=== PATIENT | female | born 1970 | race Caucasian/White ===

== ENCOUNTER 2023-09-23 12:57 | Outpatient (AMB) | payer OTHER, SELFPAY ==
[2023-09-23 13:22] VITALS: BP 132/78; BMI 30.3
--- NOTE | 2023-09-23 13:22 | MHC.OFFVIS ---
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: No Information Interpreted: clinical only Director Of Operations Support: Director Of Operations Support Present Allergies No Known Allergies Allergy (Verified 09/23/23 13:22) Medication List - Last Reviewed 09/23/23 by Romero Jean Baptiste CMA cholecalciferol (vitamin D3) 10 mcg PO DAILY Post menopausal: Yes (2018) [facility] Medical History (Updated 09/23/23 @ 16:15 by Sarahi Morgan CNM) Vitamin A deficiency Family History (Updated 09/23/23 @ 13:28 by Romero Jean Baptiste CMA) Sister Ovarian cancer Female Reproductive History Menstrual Age of Menarche: 11 Duration of menses: 6-7 days control method: none Total pregnancies: 3 Full term: 3 History of abnormal pap smear: No (2015 neg pap) Date of Mammogram: 12/07/22 (neg) Physical Exam Vital Signs: Last Vital Signs BP 132/78 09/23/23 13:22 BMI result Body Mass Index 30.3 Const General: healthy appearing, comfortable, no acute distress, well developed and alert Nutritional Appearance: average body habitus Orientation/consciousness: patient oriented x3 Limitations: no limitations HEENT Head: Yes normocephalic Neck Neck: Yes normal visual inspection Chest Chest palpation & inspection: normal inspection of the chest Breast/axilla inspection: normal inspection of the breasts and normal inspection of the axillae Breast/axilla palpation: normal palpation of the breasts and normal palpation of the axillae Resp Effort & Inspection: normal respiratory effort GI Inspection: Yes normal to inspection, No Abdominal wall edema and No distended Palpation (GI): Soft to palpation and nontender General: Yes bladder normal to palpation External Female Exam: normal external appearance and normal appearance of the urethra Speculum Exam - Vagina: normal appearance of the vagina, normal palpation and normal vaginal discharge Speculum Exam - Cervix: normal appearance of the cervix, normal palpation and nontender Bimanual exam- vagina & uterus: normal bimanual exam, normal palpation, uterine size normal, bladder normal to palpation, consistency normal, normal palpation, uterine mobility normal, uterine shape normal, No Cervical tenderness present, non-tender and no cervical motion tenderness Bimanual Exam- Adnexa, other: normal adnexae, no masses, normal and No adnexal tenderness Neuro General: patient oriented x3 Assessment & Plan Assessment & Plan (1) Family hx-malignancy: Comment: Diagnosis is unclear whether site is originally ovarian or uterine, she is in active treatment now. Code(s): Z80.9 - Family history of malignant neoplasm, unspecified Category: Medical (2) Cervical cancer screening: Code(s): Z12.4 - Encounter for screening for malignant neoplasm of cervix Category: Medical (3) Women's annual routine gynecological examination: Code(s): Z01.419 - Encounter for gynecological examination (general) (routine) without abnormal findings Category: Medical (4) Burning sensation of skin: Comment: Started suddenly this spring neck and upper chest and also on palms of hands, seeking evaluation actively with no success so far, awaiting further neurological consultation... Code(s): R20.8 - Other disturbances of skin sensation Category: Medical (5) Complicated grief: Comment: Grieving the loss of her grandmother who had a difficult over 12 days spring. Code(s): F43.21 - Adjustment disorder with depressed mood Category: Medical Plan -----Discussed in this visit the following: healthy balanced diet, regular and consistent exercise, getting recommended health screens, doing the best she can for her particular health concerns, kegel exercises, pap smear screening and followup recommendations, mammography screening and SBE, normal changes in cycles in her life stage--- .------discussed the many challenges of her sensations and seeking answers for what could be the source of her problem. She is menopausal having not had a period for many years she was 48 or 49. She is not sexually active and has not been for well over 19 years. She has no concerns at all about STDs her concerns are all about trying to see answers for what is causing her sensations of burning on her skin both in her neck and upper chest and palms of her hands that started this spring she has had a full load of tests done by her primary care provider in [facility] and is awaiting a new primary care provider in [place]. She is also awaiting a 2nd more complete neurological consultation in the fall. She was offered medication but is not interested in taking medication to mask symptoms without having a diagnosis. She has been screened for lupus and tick-borne diseases and it was felt that she did not meet criteria for MS either. It was suggested to her that all of her symptoms are related to menopause. She is not having any sleep disturbances whatsoever it isn't so much hot flashes as burning on her skin that she experiences without any flushing or skin coloration either. -------her sister was diagnosed within the last year so with some sort of cancer in the pelvic region but it was not made very clear whether it was ovarian or uterine in origin but she is undergoing treatment and she three-month scans for evaluation to follow it. Her sister does not speak of it much and so she was not able to figure out find out if her sister had the BRCA testing. -------earlier in the year her grandmother and she was witnessed to her dying in the last 12 days of her life and feels that it was not handled well and she watched her grandmother suffer. She knows she is grieving that as well. she made an active choice to raise her 3 daughters and not have any other relationships in her life after her left her.. I could not think of any test to order that would reliably connect any of her symptoms to menopause at this stage an FSH would not be very useful as it is known by her history that she is well into menopause now I could not think of the rationale to order any other test ---------I offered a pelvic ultrasound to at least screen her ovaries for any obvious pathology that might otherwise go undisclosed since she is not able to being further access to her sister's history at this time. We will have a tele visit afterwards to discuss this. Orders: Orders CT NG by PCR Today N89.8 - Other specified noninflammatory disorders of vagina US pelvic and transvaginal Today Z80.9 - Family history of malignant neoplasm, unspecified PAP + HPV E6/E7 rfx 18/45 Today Z01.419 - Encounter for gynecological examination (general) (routine) without abnormal findings Bacterial Vaginosis Panel Today N89.8 - Other specified noninflammatory disorders of vagina Coding Level of Care Code New Pt Prev Care 40-64y(30120) Diagnoses Family hx-malignancy Z80.9 Cervical cancer screening Z12.4 Women's annual routine gynecological examination Z01.419 Burning sensation of skin R20.8 Complicated grief F43.21
== END 2023-09-23 14:27 | disposition home or self-care (01) ==
LOC: HO.HWSM 12:57
PROVIDERS: PCP Internal Medicine; Visit Provider Advanced Practice Midwife
DX: Z01.419 Encounter for gynecological examination (general) (routine) without abnormal findings (principal); R20.8 Other disturbances of skin sensation; F43.21 Adjustment disorder with depressed mood; Z80.9 Family history of malignant neoplasm, unspecified
CPT/HCPCS: 99386

== ENCOUNTER 2023-09-23 12:57 | Outpatient (REF) | payer OTHER, SELFPAY ==
[2023-09-24 11:31] LABS: Bacterial Vaginosis PCR NEGATIVE (Negative); Candida Group PCR NOT DETECTED (Not Detect); Candida glab krusei PCR NOT DETECTED (Not Detect); Trichomonas vaginalis PCR NOT DETECTED (Not Detect)
[2023-09-24 11:57] LABS: CT PCR NOT DETECTED (Not Detect.); NG PCR NOT DETECTED (Not Detect.)
[2023-09-27 20:13] LABS: HPV mRNA E6/E7 Not Detected (Not Detected)
== END 2023-09-23 12:58 | disposition home or self-care (01) ==
LOC: HO.LAB 12:57
PROVIDERS: PCP Internal Medicine; Visit Provider Advanced Practice Midwife
DX: N89.8 Other specified noninflammatory disorders of vagina (principal); Z01.419 Encounter for gynecological examination (general) (routine) without abnormal findings
CPT/HCPCS: 0352U; 36415; 87491; 87591; 87624; 88175

== ENCOUNTER 2023-10-11 23:26 | Emergency (ER) | payer OTHER, SELFPAY ==
--- NOTE | ~2023-10-11 | XR_ITS ---
EXAMINATION: XR CHEST CLINICAL INFORMATION: Cough, Covid COMPARISON: None available. TECHNIQUE: Frontal view of the chest was obtained. FINDINGS: The lungs are clear with no focal consolidation. No evidence of pneumothorax, pulmonary edema, or pleural effusions. The cardiomediastinal silhouette is unremarkable. No acute osseous findings. XR/XR chest 1V IMPRESSION: No acute cardiopulmonary findings. Electronically signed by: Jaxon Spivey MD 10/12/2023 04:25 AM EDT
--- NOTE | 2023-10-11 23:44 | ECG_ITS ---
Test Reason : SYNCOPE Blood Pressure : / mmHG Vent. Rate : 099 BPM Atrial Rate : 099 BPM P-R Int : 146 ms QRS Dur : 070 ms QT Int : 346 ms P-R-T Axes : 045 018 030 degrees QTc Int : 444 ms Sinus rhythm with occasional Premature ventricular complexes Otherwise normal ECG No previous ECGs available Referred By: Marcelo Saldana Electronically Signed By:SHIRLEY SALAS
--- NOTE | 2023-10-11 23:44 | ED_ITS ---
HPI - Syncope General Chief Complaint: Syncope Stated Complaint: passed out and diaphoretic Time Seen by Provider: 10/11/23 23:44 Source: patient Mode of arrival: ambulatory Limitations: no limitations History of Present Illness ED Provider: brinda LOYOLA narrative: Patient's history of depression on duloxetine since 09/28 which causing her nausea did not eat much today was standing and talking to her daughter on phone felt lightheaded with hot feeling and blurred vision , patient passed out next thing she found her was sitting on the ground no tongue bite no seizure activity no confusion afterwards patient never had similar episode in the past no palpitation no chest pain no cardiac history patient also complaining of cough for last few days and feeling weak Related Data Home Medications ?Medication ?Instructions ?Recorded ?Confirmed cholecalciferol (vitamin D3) 10 10 mcg PO DAILY 09/23/23 mcg (400 unit) capsule Previous Rx's ?Medication ?Instructions ?Recorded benzonatate 200 mg capsule 200 mg PO TID PRN cough #20 caps 10/12/23 Allergies Allergy/AdvReac Type Severity Reaction Status Date / Time No Known Allergies Allergy Verified 10/11/23 23:49 Review of Systems 2 Review of Systems: Yes all other systems are reviewed and are negative PMF Past Medical History Medical History Vitamin A deficiency Family History Family History Sister Ovarian cancer Social History Social History Smoked in Last 30 Days: No Use of substances other than those prescribed or required for medical reasons: No Advance Directives: No Advance Directives Information Provided: Yes Do you have a plan to hurt others: No Plan Patient : No Physical Exam 2 Vital Signs: Vital Signs: Last Vital Signs Temp 98.9 F 10/12/23 02:41 Pulse 100 10/12/23 02:41 Resp 17 10/12/23 02:41 BP 103/66 10/12/23 02:41 Pulse Ox 96 10/12/23 02:41 O2 Del Method Room Air 10/12/23 02:41 BMI result Body Mass Index 30.1 Appearance: Alert. Oriented X3. No acute distress. Eyes: No pallor or icterus ENT: Pharynx normal. Oral Mucosa moist Neck: Normal inspection. Neck supple. CVS: Normal heart rate and rhythm. Pulses normal. Respiratory: No respiratory distress. Equal air entry bilateral, no wheezing/rales/rhonchi Abdomen: Soft and nontender. Bowel sounds are present, no mass palpable, no CVA tenderness Skin: Skin warm and dry. Normal skin color. Normal skin turgor. Extremities: No lower extremity edema. No calf tenderness Neuro: Oriented X 3. No motor deficit. No sensory deficit.No cerebellar signs , cranial nerves II-XII intact Medications Administered Discontinued Medications Generic Name Dose Route Start Last Admin Trade Name Freq PRN Reason Stop Dose Admin Sodium Chloride 1,000 mls @ 999 mls/hr 10/11/23 23:44 10/12/23 01:24 Ns IV 10/12/23 00:44 Infused .Q1H1M ONE Infusion Sodium Chloride 1,000 mls @ 999 mls/hr 10/12/23 01:10 10/12/23 01:14 Ns IV 10/12/23 02:10 999 mls/hr .Q1H1M ONE Administration Medical Decision Making Medical Decision Making [facility] Narrative: Patient clinically with vasovagal attack will give her IV fluids check labs COVID test positive patient improved after 2 L of IV fluids Lab Data [facility] Lab Attestation statement: I reviewed the patient's lab results. 10/12/23 00:06 10/12/23 00:06 Labs: Lab Results 10/12/23 Range/Units 00:06 WBC 6.1 (4.8-10.8) X10*3/uL RBC 4.54 (4.20-5.50) X10*6/uL Hgb 13.0 (12.0-16.0) g/dl Hct 39.2 (37.0-47.0) % MCV 86.3 (80.0-98.0) fL MCH 28.6 (27.0-33.0) pg MCHC 33.2 (31.0-35.0) g/dl RDW 12.5 (11.0-16.0) % Plt Count 183 (160-400) X10*3/uL MPV 9.7 (9.4-12.3) fL Immature Gran % (Auto) 0.5 H (0.0-0.4) % Neut % (Auto) 79.9 H (45-73) % Lymph % (Auto) 8.0 L (20-40) % Centre % (Auto) 11.0 (2-11) % Eos % (Auto) 0.3 (0-4) % Baso % (Auto) 0.3 (0-2) % Lymph # (Auto) 0.5 L (1.2-4.9) X10*3/uL Centre # (Auto) 0.7 (0.1-1.2) X10*3/uL Eos # (Auto) 0.0 (0.0-0.4) X10*3/uL Baso # (Auto) 0.0 (0.0-0.2) X10*3/uL Abs Immat Gran (auto) 0.03 (0.00-0.03) X10*3/uL Absolute Neuts (auto) 4.9 (2.0-8.3) x10*3/uL Absolute Nucleated RBC 0.000 (0.0-0.012) X10*3/uL Nucleated RBC % (auto) 0.0 (0.0-0.2) /100WBC Sodium 139 (135-145) mmol/L Potassium 3.7 (3.3-5.1) mmol/L Chloride 103 (96-108) mmol/L Carbon Dioxide 23 (22-29) mmol/L Anion Gap 17 (12-20) BUN 10 (9-16) mg/dL Creatinine 0.83 (0.5-1.4) mg/dL Estim Creat Clear Calc 77.0 Estimated GFR > 60 Random Glucose 126 H (60-115) mg/dL Calcium 8.9 (8.4-10.2) mg/dL Total Bilirubin 0.3 (0.0-1.0) mg/dL AST 37 H (5-31) U/L ALT 32 H (0-31) U/L Alkaline Phosphatase 54 (39-117) U/L Troponin I High Sens < 2.7 (<3.5-17.0) ng/L Total Protein 6.8 (6.5-8.0) g/dL Albumin 3.9 (3.5-5.0) g/dL COVID-19 ([facility]ARD[facility]) Positive A (Negative) COVID-19 Clin Com See Note Independent Interpretation I performed an independent interpretation of an: EKG Interpretation: Normal sinus rhythm heart rate 99 beats per minute occasional PVCs unifocal no acute STT wave changes no acute ischemia Discharge Plan Discharge Clinical Impression: Vasovagal syncope, COVID-19 Patient Disposition: Home, Self-Care Instructions: Syncope (ED), COVID-19 (Coronavirus Disease 2019) (ED) Additional Instructions: Drink plenty of fluids Social distancing as advised Cough drops as prescribed Report to the ER/PCP if increased shortness of breath Prescriptions: New benzonatate 200 mg capsule 200 mg PO TID PRN (Reason: cough) Qty: 20 0RF No Action cholecalciferol (vitamin D3) 10 mcg (400 unit) capsule 10 mcg PO DAILY Interventions: ED Discharge Assessment Last Done: 10/12/23 02:41 Discharge Date/Time: 10/12/23 02:42 Print Language: [place] Leonean
[2023-10-11 23:47] VITALS: BP 115/62; BP 125/75; PULSE 62; PULSE 94; RESP 19; TEMP 37.2; O2SAT 95; O2SAT 96; BMI 30.1
[2023-10-11] MEDS: 0.9 % Sodium Chloride 1,000 ML 999 ML IV (23:51)
--- NOTE | 2023-10-12 00:09 | PC.NURSE ---
pt biba from home a&ox4, respirations even and unlabored. pt reporting talking to daughter on phone when she experienced a syncopal episode. pt reports she had a feeling that she might pass out. pt denies head strike and blood thinners. pt reports starting a new medication and reports it has been making her feel unwell. pt reports she has had poor PO intake all day. ems placed 18G left ac, 4mg zofran given. pt normal sinus on tele 89-90bpm. labs obtained and sent.
[2023-10-12 00:11] VITALS: O2SAT 98
[2023-10-12 00:11] LABS: MANUAL DIFF FLAG NO
[2023-10-12 00:15] LABS: Basophils Percent Auto 0.3 % (0-2); Eosinophils Percent Auto 0.3 % (0-4); Hematocrit 39.2 % (37.0-47.0); Imm Gran Abs Auto 0.03 X10*3/uL (0.00-0.03); Imm Gran Pct Auto 0.5 % (0.0-0.4); Lymphocytes Absolute Auto 0.5 X10*3/uL (1.2-4.9); Mean Corpuscular HGB Conc 33.2 g/dl (31.0-35.0); Mean Corpuscular Hemoglobin 28.6 pg (27.0-33.0); Mean Corpuscular Volume 86.3 fL (80.0-98.0); Mean Platelet Volume 9.7 fL (9.4-12.3); Monocytes Absolute Auto 0.7 X10*3/uL (0.1-1.2); Neutrophils Absolute Auto 4.9 x10*3/uL (2.0-8.3); Neutrophils Percent Auto 79.9 % (45-73); Platelet Count 183 X10*3/uL (160-400); Red Blood Count 4.54 X10*6/uL (4.20-5.50); Red Cell Distribution Width 12.5 % (11.0-16.0); White Blood Count 6.1 X10*3/uL (4.8-10.8)
[2023-10-12 00:26] LABS: Alanine Aminotransferase 32 U/L (0-31); Albumin Level 3.9 g/dL (3.5-5.0); Alkaline Phosphatase 54 U/L (39-117); Anion Gap 17 (12-20); Aspartate Amino Transferase 37 U/L (5-31); Bilirubin Total 0.3 mg/dL (0.0-1.0); Blood Urea Nitrogen 10 mg/dL (9-16); Calcium 8.9 mg/dL (8.4-10.2); Carbon Dioxide 23 mmol/L (22-29); Chloride 103 mmol/L (96-108); Estimated Glomerular Filt Rate > 60; Glucose Random 126 mg/dL (60-115); Potassium 3.7 mmol/L (3.3-5.1); Sodium 139 mmol/L (135-145); Total Protein 6.8 g/dL (6.5-8.0)
[2023-10-12 00:33] LABS: Troponin-I High Sensitivity < 2.7 ng/L (<3.5-17.0)
[2023-10-12 00:50] LABS: COVID-19 Test Positive (Negative); IDNOW Serial# 08D9AD1C
[2023-10-12 01:08] VITALS: BP 114/69; BP 122/75; PULSE 95; PULSE 97
[2023-10-12 01:09] VITALS: BP 99/63; PULSE 116
--- NOTE | 2023-10-12 01:09 | PC.NURSE ---
pt orthostatic vitals obtained at this time, pt denied dizziness and shortness of breath when standing. aware, second IV bolus administered at this time.
[2023-10-12] MEDS: 0.9 % Sodium Chloride 1,000 ML 999 ML IV (01:14)
[2023-10-12 02:41] VITALS: BP 103/66; PULSE 100; RESP 17; TEMP 37.2; O2SAT 96
== END 2023-10-12 02:42 | disposition home or self-care (01) ==
PROVIDERS: Emergency Provider Internal Medicine; PCP Internal Medicine
DX: R55 Syncope and collapse (principal); R11.0 Nausea; R42 Dizziness and giddiness; R94.31 Abnormal electrocardiogram [ECG] [EKG]; R05.9 Cough, unspecified; H53.8 Other visual disturbances; Z79.899 Other long term (current) drug therapy; Z11.52 Encounter for screening for COVID-19
CPT/HCPCS: 36415; 71045; 80053; 84484; 85025; 87635; 93005; 96360; 96361; 99284; 99285

== ENCOUNTER 2023-10-18 14:40 | Outpatient (AMB) | payer OTHER, SELFPAY ==
--- NOTE | 2023-10-18 14:41 | A.OFFVIS_ITS ---
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 The patient is experiencing mild hot flashes urine there not significant and can tell that these are separate episodes from the burning skin sensation that she is experiencing. The patient was seen by neurologist who rule out neuropathy and fibromyalgia is the next working diagnosis. The patient was referred here to rule out menopause as cause of her burning skin sensation. The patient has been amenorrheic over the last 3 years. [facility] Medical History Vitamin A deficiency Family History Sister Ovarian cancer Social History Household Members: None Housing: House Alcohol intake: never Patient Tobacco Use Status: Never used Tobacco Current occupational status: employed Current occupation: [employer] Sexually active: No Sexual orientation: Straight/Heterosexual Gender identity: Female Female Reproductive History Menstrual Age of Menarche: 11 Menopause type: natural Age of menopause: 49 Total pregnancies: 3 Full term: 3 Number of Living Children: 3 Review of Systems Const All systems reviewed & are unremarkable except as noted in HPI and below Reports as per HPI and Reports no additional complaints GI Reports no additional complaints Reports no additional complaints Physical Exam Vital Signs: BMI result Body Mass Index 27.8 Assessment & Plan Assessment & Plan (1) Burning sensation of skin: Code(s): R20.8 - Other disturbances of skin sensation Category: Medical Plan: Discussed with the patient that menopause is associated with hot flashes; I described to the patient hot flashes episodes which are vasomotor symptoms. Options of treatment for vasomotor symptoms include hormonal versus nonhormonal therapy. Since the patient is experiencing skin burning sensation as separate episodes from hot flashes and since her hot flashes are mild, she is not interested in any treatment for hot flash at this point. Recommend for the patient to contact her PCP for her 3rd referral to rule out fibromyalgia or other cause of her skin burning sensation. All questions answered, the patient verbalized understanding Coding Level of Care Code Est Pt Level 3 (82871) Diagnoses Burning sensation of skin R20.8
[2023-10-18 14:42] VITALS: BP 124/82; BMI 27.8
== END 2023-10-18 16:24 | disposition home or self-care (01) ==
LOC: HO.HWS 14:40
PROVIDERS: PCP Physician Assistant; Visit Provider Obstetrics & Gynecology
DX: R20.8 Other disturbances of skin sensation (principal)
CPT/HCPCS: 99213

== ENCOUNTER → 2023-10-18 14:40 | Outpatient (BNVA) | payer OTHER, SELFPAY | PROVIDERS: PCP Physician Assistant; Visit Provider Obstetrics & Gynecology ==

== ENCOUNTER 2024-05-03 08:02 | Outpatient (AMB) | payer OTHER, SELFPAY ==
[2024-05-03 08:05] VITALS: BP 118/78; PULSE 99; RESP 20; TEMP 37.1; O2SAT 100; BMI 30.1
--- NOTE | 2024-05-03 08:05 | A.OFFPC_ITS ---
Vital Signs 05/03/24 08:05 Height 5 ft 3 in Weight 170 lb BMI 30.1 BP 118/78 Blood Pressure Location Lt brachial Position Sitting Respiration 20 Pulse 99 Pulse Source Pulse Oximeter Temp 98.8 F Temp Source Oral Pulse Oximetry (%) 100 Oxygen Delivery Method Room Air Intake Visit Reasons: Establish Care Intake Note: Pt is here today for a New patient visit. Allergies No Known Allergies Allergy (Verified 05/03/24 08:06) Medication List - Last Reconciled 05/03/24 by Yelitza Sims MD cholecalciferol (vitamin D3) 10 mcg PO DAILY duloxetine 30 mg PO DAILY Tobacco use date assessed: 05/03/24 Dental Screening Dental Screen Date: 05/03/24 Did you have a dental visit in the last 12 months?: Yes Did you have a dental problem in the last 6 months where you did not have access to dental care?: No Was dental information given to patient?: Patient has dentist HPI Establish Care HPI Details Patient presents for new patient visit. She has been complaining of intermittent episodes of upper chest,arms and legs tingling and burning sensation on and off for the last year since her grandmother . Patient has been grieving her grandmother and is upset because of how she in a hospital. Patient denies depression but reports intermittent insomnia and feeling anxious. There is no change in appetite. 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 Patient was started on duloxetine, she tried for few weeks but has not noticed any improvement and does not want to continue the medication. Patient exercises regularly, walking the dog and denies exercise induced chest pain, shortness or breath, palpitations, nausea,vomiting. 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 1. Little interest or pleasure in doing things: not at all 2. Feeling down, depressed, or hopeless: not at all 3. Trouble falling or staying asleep, or sleeping too much: not at all 4. Feeling tired or having little energy: not at all 5. Poor appetite or overeating: not at all 6. Feeling bad about yourself - or that you are a failure or have let yourself or your family down: not at all 7. Trouble concentrating on things, such as reading the newspaper or watching television: not at all 8. Moving or speaking so slowly that other people could have noticed. Or the opposite - being so fidgety or restless that you have been moving around a lot more than usual: not at all 9. Thoughts that you would be better off or of hurting yourself in some way: not at all Total score: 0 Depression Screening Interpretation: Negative Depression Screening Done: Yes 38824 - PHQ-9 Billing: Yes Source: Developed by Drs. Dean Yang, Daisha Kiran, Noé Allen and colleagues, with an educational yandel from [employer]. Thrive Questionnaire Date Thrive assessed: 05/03/24 I am a: Patient What is your living situation today?: I have a steady place to live Within the past 12 months, did the food you bought not last and you didn't have the money to get more?: Never true Within the past 12 months, did you worry whether your food would run out before you got money to buy more?: Never true Do you have trouble paying for medicines?: No Do you have trouble getting transportation to medical appointments?: No Do you have trouble paying your heating and electricity bill?: No Do you have trouble taking care of your child, family member or friend?: No Do you have trouble with day-to-day activities such as bathing, preparing meals, shopping, managing finances, etc.?: No Are you currently unemployed and looking for a job?: No Are you interested in more education?: No Please select the resources that you would like help with: None Currently or been in a relationship where the following occur: No concerns reported THRIVE Score: 0 AUDIT C Alcohol Use Questionnaire (AUDIT-C) 1. How often do you have a drink containing alcohol?: Never 3. How often do you have six or more drinks on one occasion?: Never Total Score: 0 CHYNA-7 AMB Questionnaire CHYNA-7 Date CHYNA - 7 assessed: 05/03/24 Feeling nervous, anxious, or on edge: 0 = Not at all Not being able to stop or control worryin = Several days Worrying too much about different things: 1 = Several days Trouble relaxin = Not at all Being so restless that it is hard to sit still: 0 = Not at all Becoming easily annoyed or irritable: 1 = Several days Feeling afraid as if something awful might happen: 0 = Not at all Total CHYNA-7 score (0-4 normal; 5-9 mild; 10-14 moderate; 15-21 severe): 3 Source: Developed by Drs. Dean Yang, Daisha Kiran, Noé Allen and colleagues, with an educational yandel from [employer]. CHYNA-7 Assessment Billing CHYNA-7 Assessment Tool: CHYNA-7 Assessment 92736 Review of Systems Const All systems reviewed & are unremarkable except as noted in HPI and below Reports no additional complaints Eyes Reports no additional complaints ENT Reports no additional complaints Card Reports no additional complaints Resp Reports no additional complaints GI Reports no additional complaints Physical exam (Primary Care) Vital Signs: Last Vital Signs Temp 98.8 F 05/03/24 08:05 Pulse 99 05/03/24 08:05 Resp 20 05/03/24 08:05 BP 118/78 05/03/24 08:05 Pulse Ox 100 05/03/24 08:05 Oxygen Delivery Method Room Air 05/03/24 08:05 BMI result Body Mass Index 30.1 Tobacco/Smoking Status: Tobacco use Status Tobacco use date assessed 05/03/24 05/03/24 08:16 Patient Tobacco Use Status Never used Tobacco 05/03/24 08:45 e-Cigarette/Vaping Use Never Used 05/03/24 08:45 PHQ-9: PHQ-9 Score PHQ-9: Total score 0 05/03/24 08:50 Depression Screening Interpretation: Negative Thrive Assessment: Date of Thrive Assessment Date Thrive assessed 05/03/24 05/03/24 08:16 Currently or been in a relationship where the following occur: No concerns reported Const General: no acute distress HENMT Head: Yes normal to inspection Ears: hearing grossly normal bilaterally Face and sinus: Yes normal facial exam Throat: Yes posterior oropharynx normal Eyes General: appearance normal, both eyes and all related structures Neck Neck: Yes no lymphadenopathy and Yes supple Resp Effort & Inspection: normal respiratory effort Auscultation: clear to auscultation bilaterally Cardio Rhythm: regular rhythm Heart sounds: S1 normal heart sound present and S2 normal heart sound present GI Inspection: Yes normal to inspection Palpation (GI): Soft to palpation Percussion: Yes normal to percussion Auscultation: normal bowel sounds Skin General skin exam: no rashes or lesions noted Neuro General: CN's II-XI intact bilaterally Cognition (Neuro): normal cognition Gait exam (Neuro): Normal gait present Motor exam (neuro): 5/5 motor strength present throughout Romberg Test: Negative Coding Level of Care Code New Pt Level 4 (85477) Diagnoses Complicated grief F43.21 Burning sensation of skin R20.8 Additional Codes CHYNA-7 Assessment Billing - CHYNA-7 Assessment Tool: CHYNA-7 Assessment 58317 ([id number]) PHQ-9 - 60908 - PHQ-9 Billing: Yes ([id number]) Assessment & Plan Assessment & Plan (1) Complicated grief: Comment: Grieving the loss of her grandmother who in 06/2023 Code(s): F43.21 - Adjustment disorder with depressed mood Category: Medical Plan: Patient was advised to schedule an appointment with a counselor. Well-balanced diet, regular physical activity, mindfulness and stress management discussed with the patient. Patient will follow-up in 1 month (2) Burning sensation of skin: Code(s): R20.8 - Other disturbances of skin sensation Category: Medical Plan: Check fasting blood work Orders: Orders Lipid Panel Today Z00.00 - Encounter for general adult medical examination without abnormal findings Complete Blood Count Auto Diff Today Z00.00 - Encounter for general adult medical examination without abnormal findings Comprehensive [place]. Panel Fast Today Z00.00 - Encounter for general adult medical examination without abnormal findings TSH reflex Free T4 Today Z00.00 - Encounter for general adult medical examination without abnormal findings Vitamin D 25-OH Total Today Z00.00 - Encounter for general adult medical examination without abnormal findings Vitamin B12 and Folate Today Z00.00 - Encounter for general adult medical examination without abnormal findings Hemoglobin A1c Today Z00.00 - Encounter for general adult medical examination without abnormal findings
== END 2024-05-03 09:32 | disposition home or self-care (01) ==
LOC: HO.HMCC 08:02
PROVIDERS: PCP Physician Assistant; Visit Provider Internal Medicine
DX: F43.21 Adjustment disorder with depressed mood (principal); R20.8 Other disturbances of skin sensation

== ENCOUNTER 2024-05-03 08:02 | Outpatient (REF) | payer OTHER, SELFPAY ==
[2024-05-03 13:41] LABS: MANUAL DIFF FLAG NO
[2024-05-03 13:50] LABS: Basophils Percent Auto 0.7 % (0-2); Eosinophils Absolute Auto 0.1 X10*3/uL (0.0-0.4); Eosinophils Percent Auto 2.8 % (0-4); Hematocrit 42.3 % (37.0-47.0); Hemoglobin 13.7 g/dl (12.0-16.0); Imm Gran Abs Auto 0.02 X10*3/uL (0.00-0.03); Imm Gran Pct Auto 0.5 % (0.0-0.4); Lymphocytes Absolute Auto 1.3 X10*3/uL (1.2-4.9); Lymphocytes Percent Auto 31.4 % (20-40); Mean Corpuscular HGB Conc 32.4 g/dl (31.0-35.0); Mean Corpuscular Hemoglobin 28.2 pg (27.0-33.0); Mean Corpuscular Volume 87.2 fL (80.0-98.0); Mean Platelet Volume 9.9 fL (9.4-12.3); Monocytes Absolute Auto 0.4 X10*3/uL (0.1-1.2); Monocytes Percent Auto 9.7 % (2-11); Neutrophils Absolute Auto 2.3 x10*3/uL (2.0-8.3); Neutrophils Percent Auto 54.9 % (45-73); Platelet Count 249 X10*3/uL (160-400); Red Blood Count 4.85 X10*6/uL (4.20-5.50); White Blood Count 4.2 X10*3/uL (4.8-10.8)
[2024-05-03 13:55] LABS: Estimated Average Glucose 111 mg/dL; Hemoglobin A1c % 5.5 % (<6.0); Total Hemoglobin (HGBA1C) 3653.8144 umol/L
[2024-05-03 14:08] LABS: Alanine Aminotransferase 40 U/L (0-31); Albumin Level 4.2 g/dL (3.5-5.0); Alkaline Phosphatase 69 U/L (39-117); Anion Gap 9 (12-20); Aspartate Amino Transferase 30 U/L (5-31); Bilirubin Total 0.4 mg/dL (0.0-1.0); Blood Urea Nitrogen 16 mg/dL (9-16); Calcium 9.4 mg/dL (8.4-10.2); Carbon Dioxide 27 mmol/L (22-29); Chloride 108 mmol/L (96-108); Cholesterol 229 mg/dL (<200); Estimated Glomerular Filt Rate > 60; Glucose Fasting 95 mg/dL (60-99); HDL Cholesterol 52 mg/dL (>40); LDL Cholesterol Calculated 163 mg/dL (<100); Sodium 140 mmol/L (135-145); Total Protein 7.3 g/dL (6.5-8.0); Triglycerides 73 mg/dL (<150)
[2024-05-03 14:27] LABS: TSH reflex Free T4 0.59 uIU/mL (0.32-4.0); Vitamin D 25-OH Total 54.2 ng/mL (>30)
[2024-05-03 14:34] LABS: Folate 11.3 ng/mL (> or = 4.0); Vitamin B12 399 pg/mL (200-900)
== END 2024-05-03 08:03 | disposition home or self-care (01) ==
LOC: HO.HMGCLDS 08:02
PROVIDERS: PCP Internal Medicine; Visit Provider Internal Medicine
DX: F43.21 Adjustment disorder with depressed mood (principal); R20.8 Other disturbances of skin sensation; Z00.00 Encounter for general adult medical examination without abnormal findings; Z13.6 Encounter for screening for cardiovascular disorders; Z13.1 Encounter for screening for diabetes mellitus
CPT/HCPCS: 36415; 80053; 80061; 82306; 82607; 82746; 83036; 84443; 85025; 96127

== ENCOUNTER 2024-06-09 08:58 | Outpatient (AMB) | payer OTHER, SELFPAY ==
[2024-06-09 09:00] VITALS: BP 124/82; PULSE 88; RESP 18; TEMP 37.1; O2SAT 97; BMI 30.3
--- NOTE | 2024-06-09 09:00 | MHC.PC.OV ---
Vital Signs 06/09/24 09:00 Height 5 ft 3 in Weight 171 lb BMI 30.3 BP 124/82 Blood Pressure Location Lt brachial Position Sitting Respiration 18 Pulse 88 Pulse Source Pulse Oximeter Temp 98.8 F Temp Source Oral Pulse Oximetry (%) 97 Oxygen Delivery Method Room Air Intake Visit Reasons: 1m follow up Intake Note: Pt is here today for 1 month follow up visit. Allergies No Known Allergies Allergy (Verified 06/09/24 09:06) Medication List - Last Reconciled 06/09/24 by Yelitza Sims MD cholecalciferol (vitamin D3) 10 mcg PO DAILY duloxetine 30 mg PO DAILY Tobacco use date assessed: 06/09/24 Dental Screening Dental Screen Date: 05/03/24 HPI 1m follow up HPI Details Patient presents for the follow-up. She complains of persistent burning sensation in her chest arms and legs episodes for the last year. She reports episodes getting shorter and less frequent. She has discontinued duloxetine and did not noticed any change in her symptoms. Patient reports chronic cough on and off for 1 year. She denies sputum production wheezing shortness or breath PND orthopnea. She reports chronic postnasal drip and occasionally itchy eyes and runny nose when around her 2 cats. 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 Alcohol intake: never Patient Tobacco Use Status: Never used Tobacco e-Cigarette/Vaping Use: Never Used service: No Current occupational status: employed Current occupation: [employer] Sexual orientation: Straight/Heterosexual Gender identity: Female Cognitive needs: No Hearing needs: No Female Reproductive History Menstrual Age of Menarche: 11 Questionnaire Thrive Questionnaire Date Thrive assessed: 05/03/24 I am a: Patient What is your living situation today?: I have a steady place to live Within the past 12 months, did the food you bought not last and you didn't have the money to get more?: Never true Within the past 12 months, did you worry whether your food would run out before you got money to buy more?: Never true Do you have trouble paying for medicines?: No Do you have trouble getting transportation to medical appointments?: No Do you have trouble paying your heating and electricity bill?: No Do you have trouble taking care of your child, family member or friend?: No Do you have trouble with day-to-day activities such as bathing, preparing meals, shopping, managing finances, etc.?: No Are you currently unemployed and looking for a job?: No Are you interested in more education?: No Please select the resources that you would like help with: None Currently or been in a relationship where the following occur: No concerns reported THRIVE Score: 0 AUDIT C Alcohol Use Questionnaire (AUDIT-C) 2. How many drinks containing alcohol do you have on a typical day when you are drinking?: 1 or 2 3. How often do you have six or more drinks on one occasion?: Never Total Score: 0 CHYNA-7 AMB Questionnaire CHYNA-7 Date CHYNA - 7 assessed: 05/03/24 Source: Developed by Drs. Dean Yang, Daisha Kiran, Noé Allen and colleagues, with an educational yandel from [employer]. Review of Systems Const All systems reviewed & are unremarkable except as noted in HPI and below Reports no additional complaints Eyes Reports no additional complaints ENT Reports no additional complaints Card Reports no additional complaints Resp Reports no additional complaints GI Reports no additional complaints Reports no additional complaints Physical exam (Primary Care) Vital Signs: Last Vital Signs Temp 98.8 F 06/09/24 09:00 Pulse 88 06/09/24 09:00 Resp 18 06/09/24 09:00 BP 124/82 06/09/24 09:00 Pulse Ox 97 06/09/24 09:00 Oxygen Delivery Method Room Air 06/09/24 09:00 BMI result Body Mass Index 30.3 Tobacco/Smoking Status: Tobacco use Status Tobacco use date assessed 06/09/24 06/09/24 09:06 Patient Tobacco Use Status Never used Tobacco 06/09/24 09:06 e-Cigarette/Vaping Use Never Used 06/09/24 09:05 Thrive Assessment: Date of Thrive Assessment Date Thrive assessed 05/03/24 06/09/24 09:05 Currently or been in a relationship where the following occur: No concerns reported Const General: no acute distress HENMT Head: Yes normal to inspection Ears: hearing grossly normal bilaterally Face and sinus: Yes normal facial exam Mouth: Normal oral and palatal mucosa present Eyes General: appearance normal, both eyes and all related structures Neck Neck: Yes supple Resp Effort & Inspection: normal respiratory effort Auscultation: clear to auscultation bilaterally Cardio Rhythm: regular rhythm Heart sounds: S1 normal heart sound present and S2 normal heart sound present GI Inspection: Yes normal to inspection Palpation (GI): Soft to palpation Percussion: Yes normal to percussion Auscultation: normal bowel sounds Coding Level of Care Code Est Pt Level 4 (05108) Diagnoses Chronic cough R05.3 Hyperlipidemia E78.5 Burning sensation of skin R20.8 Assessment & Plan Assessment & Plan (1) Chronic cough: Comment: since 06/2023, negative CXR 10/2023 Code(s): R05.3 - Chronic cough Category: Medical Plan: For chronic cough patient was advised to try antihistamine for at least 2 weeks. PFTs will be obtained if negative bronchial challenge will be scheduled. (2) Hyperlipidemia: Code(s): E78.5 - Hyperlipidemia, unspecified Category: Medical Plan: Low-cholesterol diet increase physical activity discussed with the patient repeat lipid profile in 4 months (3) Burning sensation of skin: Comment: for 1 year started after grandmother , negative neuro and rheumatological workup, duloxetine not affective Code(s): R20.8 - Other disturbances of skin sensation Category: Medical Plan: psychosomatic. Regular mindfulness exercises and physical activity discussed with the patient. She declined counseling. Follow-up in 4 months Orders: Orders PFT pulmonary function test Today E78.5 - Hyperlipidemia, unspecified, R05.3 - Chronic cough Lipid Panel 4 Months E78.5 - Hyperlipidemia, unspecified
== END 2024-06-09 11:53 | disposition home or self-care (01) ==
LOC: HO.HMCC 08:59
PROVIDERS: PCP Physician Assistant; Visit Provider Internal Medicine
DX: R05.3 Chronic cough (principal); E78.5 Hyperlipidemia, unspecified; R20.8 Other disturbances of skin sensation

== ENCOUNTER → 2024-06-09 08:58 | Outpatient (BNVA) | payer OTHER, SELFPAY | PROVIDERS: PCP Physician Assistant; Visit Provider Internal Medicine | DX: Z13.89 Encounter for screening for other disorder (principal) ==

== ENCOUNTER 2024-09-26 08:57 | Outpatient (REF) | payer OTHER, SELFPAY ==
--- NOTE | 2024-09-26 09:02 | PFT_ITS ---
Indication: Cough Spirometry FEV1 to FVC 86%; FEV1 2.84 L; FVC 3.32 L. No significant response to bronchodilators noted. Lung Volumes Total lung capacity 95% predicted; residual volume that he 6% predicted Diffusion Capacity DLCO 100% predicted Comparison None Interpretation No obstructive nor restrictive ventilatory defects identified. No significant response to bronchodilators noted. Normal flow volume loop. Lung volumes are within normal limits. Diffusing capacity also within normal limits. If asthma is in the differential methacholine challenge may be helpful in assessing for hyperreactive airways. Otherwise clinical correlation warranted. MTDD
[2024-09-26 09:37] VITALS: PULSE 82; O2SAT 99
--- OUTSIDE RECORDS SUMMARY | 2024-09-26 09:49 | XMS_ITS | Clinical Summary ---
Author Organization [facility] Address [address] [place] [id number] Phone Care Team Providers Care Macadam Raker Name Role Phone Eric Rodriguez MD Unavailable [phone] Naomie Parker NP Unavailable [phone] Pcp, Unknown Primary Care Provider Unavailabl e Active Problems Problem Noted Date Diagnosed Date Vasovagal syncope 11/03/2023 Overview (11/03/2023): Was eval in [facility] 10/12/23 Immunizations Immunization Administration Dates Next Due Td (adult) 5 Lf Tetanus Toxoid, PF, Adsorbed 02/2012 Social History Tobacco Use Types Packs/Day Years Used Date Smoking Tobacco: Never Assessed Education Answer Date Recorded Are you interested in more education? Not on sheng e 06/05/2022 Are you concerned about learning? Not on file 06/05/2022 No 06/05/2022 No 06/05/2022 Digital Access Answer Date Recorded No 07/04/2022 No 07/04/2022 No 07/04/2022 Reliable internet access at home? Not on file 07/04/2022 Device with a working camera? Not on file Comments Unknown Sex and Gender Information Value Date Recorded Sex Assigned at Not on file Legal Sex Female 9:34 PM EDT Gender Identity Not on file Sexual Orientation Not on file Last Filed Vital Signs Vital Sign Reading Time Taken Comments Blood Pressure 122/80 06/05/2016 2:05 AM EDT Pulse 89 06/05/2016 2:05 AM EDT Temperature 36.5 C (97.7 F) 06/05/2016 2:05 AM EDT Respiratory Rate 16 06/05/2016 2:05 AM EDT Oxygen Saturation - - Inhaled Oxygen Concentration - - Weight 78.9 kg (174 lb) 06/05/2016 2:05 AM EDT Height 157.5 cm (5' 2 ) 06/05/2016 2:05 AM EDT Body Mass Index 31.83 06/05/2016 2:05 AM EDT Plan of Treatment Health Maintenance Due Date Last Done Comments LIPID PANEL 1970 DEPRESSION SCREENING 1982 SMOKING Hx and SMOKELESS TOBACCO SCREENING 04/12/1983 HEPATITIS C SCREENING 1988 HIV ONE-TIME SCREENING (18-65 YEARS) 1988 PAP SMEAR 04/12/1991 COLOGUARD 04/12/2015 COLONOSCOPY 04/12/2015 COLORECTAL CANCER SCREENING 04/12/2015 FIT TEST 04/12/2015 FOBT 04/12/2015 SIGMOIDOSCOPY 04/12/2015 VIRTUAL COLONOSCOPY 04/12/2015 PNEUMOCOCCAL VACCINES (50+ years) (1 of 1 - PCV) 2020 ZOSTER VACCINES (1 of 2) 2020 Adult Td,Tdap Booster 10/09/2022 10/09/2012 COVID-19 VACCINE ( season) 2023 05/24/2020, 05/03/2020 MAMMOGRAM 02/26/2025 02/26/2023, 1008/2021, 11/13/2020, Additional history exists HEPATITIS A VACCINES Aged Out No long er eligible based on patient's age to complete this topic HIB VACCINES Aged Out No longer eligi ble based on patient's age to complete this topic MENINGOCOCCAL VACCINES (ACWY) Aged Out No longer eligible based on patient's age to complete this topic MENINGOCOCCAL VACCINES (B) Aged Out N o longer eligible based on patient's age to complete this topic Medical Devices Not on file Procedures Procedure Name Priority Date/Time Associated Diagnosis Comments MAMMOGRAPHY Routine 02/26/2023 11:56 AM EST from Last 3 Months or Most Recently Relevant to Health Maintenance Results * MAMMOGRAPHY FOR RESULT ENTRY ONLY (02/26/2023 11:56 AM EST) us Historical Provider HEALTH MAINTENANCE Final Result from Last 3 Months or Most Recently Relevant to Health Maintenance [facility] Care Teams Macadam Raker Relationship Specialty Start Date End Date Pcp, Unknown PCP - General 09/05/21 Eric Rodriguez MD [address] [place] [address] Historical LMR Provider 11/29/16 Naomie Parker NP [address] [place] [address] Historical LMR Provider 11/29/16 Additional Source Comments The information contained in this document represents components of the legal health record. It is not the complete legal health record.[facility]
== END 2024-09-26 08:58 | disposition home or self-care (01) ==
LOC: HO.RESP 08:57
PROVIDERS: PCP Internal Medicine; Visit Provider Internal Medicine
DX: R05.3 Chronic cough (principal); E78.5 Hyperlipidemia, unspecified
CPT/HCPCS: 94010; 94640; 94727; 94729

== ENCOUNTER → 2024-09-26 09:02 | Outpatient (BNV) | payer OTHER, SELFPAY | PROVIDERS: PCP Internal Medicine; Visit Provider Hospitalist | DX: R05.9 Cough, unspecified (principal) | CPT/HCPCS: 94060; 94727; 94729 ==

== ENCOUNTER 2024-11-14 06:53 | Outpatient (REF) | payer OTHER, SELFPAY ==
--- OUTSIDE RECORDS SUMMARY | 2024-11-14 06:58 | XMS_ITS | Clinical Summary ---
Author Organization [facility] Address [address] [place] [id number] Phone Care Team Providers Care Leaf Coverer Name Role Phone Eric Rodriguez MD Unavailable [phone] Naomie Parker NP Unavailable [phone] Pcp, Unknown Primary Care Provider Unavailabl e Active Problems Problem Noted Date Diagnosed Date Vasovagal syncope 11/03/2023 Overview (11/03/2023): Was eval in [facility] ED 10/12/23 Immunizations Immunization Administration Dates Next [...] 2) 2020 Adult Td,Tdap Booster 10/09/2022 10/09/2012 INFLUENZA VACCINE (#1) 2024 11/02/2019, 2019 COVID-19 VACCINE (3 - season) 2024 05/24/2020, 05/03/2020 MAMMOGRAM 02/26/2025 02/26/2023, 1008/2021, 11/13/2020, [...] Most Recently Relevant to Health Maintenance Insurance [address] [place], [place] [address]O [facility] Care Teams Leaf Coverer Relationship Specialty Start Date End Date Pcp, Unknown PCP - General 09/05/21 Eric Rodriguez MD [address] [place] [address] Historical LMR Provider 11/29/16 Naomie Parker NP [address] [place] [address] Historical LMR Provider 11/29/16 Additional Source Comments The information contained in this document represents components of the legal health record. It is not the complete legal health record.[facility]
[2024-11-14 10:22] LABS: Appearance Urine Turbid; Glucose Urine UA Negative (Negative); PH 5.0 (5.0-9.0); Specific Gravity - Urine 1.020 (1.005-1.025); UMIC TRIGGER UA YES
[2024-11-14 10:42] LABS: Cholesterol 225 mg/dL (<200); HDL Cholesterol 46 mg/dL (>40); Triglycerides 118 mg/dL (<150)
== END 2024-11-14 06:54 | disposition home or self-care (01) ==
LOC: HO.HMGCLDS 06:53
PROVIDERS: PCP Internal Medicine; Visit Provider Internal Medicine
DX: R30.0 Dysuria (principal); E78.5 Hyperlipidemia, unspecified
CPT/HCPCS: 36415; 80061; 81001; 87086

== ENCOUNTER 2024-11-17 11:42 | Outpatient (AMB) | payer OTHER, SELFPAY ==
[2024-11-17 11:44] VITALS: BP 114/74; PULSE 81; RESP 18; TEMP 36.9; O2SAT 97; BMI 30.3
--- NOTE | 2024-11-17 11:44 | A.OFFPC_ITS ---
Vital Signs 11/17/24 11:44 Height 5 ft 3 in Weight 171 lb BMI 30.3 BP 114/74 Blood Pressure Location Lt brachial Position Sitting Respiration 18 Pulse 81 Pulse Source Pulse Oximeter Temp 98.4 F Temp Source Oral Pulse Oximetry (%) 97 Oxygen Delivery Method Room Air Intake Visit Reasons: Referral- Derm. Intake Note: Pt is here today for a a follow up visit to discuss some questions she has. Allergies No Known Allergies Allergy (Verified 11/17/24 11:48) Medication List - Last Reconciled 11/17/24 by Yelitza Sims MD cholecalciferol (vitamin D3) 10 mcg PO DAILY Tobacco use date assessed: 11/17/24 Dental Screening Dental Screen Date: 05/03/24 HPI Referral- Derm. HPI Details Patient had an episode of increased urinary frequency and dysuria for 4 days resolved 3 days ago after patient increase fluid intake. She denies hematuria nausea vomiting fever chills back pain. 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 1. Little interest or pleasure in doing things: not at all 2. Feeling down, depressed, or hopeless: not at all 3. Trouble falling or staying asleep, or sleeping too much: not at all 4. Feeling tired or having little energy: not at all 5. Poor appetite or overeating: not at all 6. Feeling bad about yourself - or that you are a failure or have let yourself or your family down: not at all 7. Trouble concentrating on things, such as reading the newspaper or watching television: not at all 8. Moving or speaking so slowly that other people could have noticed. Or the opposite - being so fidgety or restless that you have been moving around a lot more than usual: not at all 9. Thoughts that you would be better off or of hurting yourself in some way: not at all Total score: 0 Depression Screening Interpretation: Negative Depression Screening Done: Yes Source: Developed by Drs. Dean Yang, Daisha Kiran, Noé Allen and colleagues, with an educational yandel from [employer]. Thrive Questionnaire Date Thrive assessed: 05/03/24 I am a: Patient What is your living situation today?: I have a steady place to live Within the past 12 months, did the food you bought not last and you didn't have the money to get more?: Never true Within the past 12 months, did you worry whether your food would run out before you got money to buy more?: Never true Do you have trouble paying for medicines?: No Do you have trouble getting transportation to medical appointments?: No Do you have trouble paying your heating and electricity bill?: No Do you have trouble taking care of your child, family member or friend?: No Do you have trouble with day-to-day activities such as bathing, preparing meals, shopping, managing finances, etc.?: No Are you currently unemployed and looking for a job?: No Are you interested in more education?: No Please select the resources that you would like help with: None Currently or been in a relationship where the following occur: No concerns reported THRIVE Score: 0 CHYNA-7 AMB Questionnaire CHYNA-7 Date CHYNA - 7 assessed: 05/03/24 Feeling nervous, anxious, or on edge: 0 = Not at all Not being able to stop or control worryin = Not at all Worrying too much about different things: 0 = Not at all Trouble relaxin = Not at all Being so restless that it is hard to sit still: 0 = Not at all Becoming easily annoyed or irritable: 0 = Not at all Feeling afraid as if something awful might happen: 0 = Not at all Total CHYNA-7 score (0-4 normal; 5-9 mild; 10-14 moderate; 15-21 severe): 0 Source: Developed by Drs. Dean Yang, Daisha Kiran, Noé Allen and colleagues, with an educational yandel from [employer]. Review of Systems Const All systems reviewed & are unremarkable except as noted in HPI and below Eyes Reports no additional complaints ENT Reports no additional complaints Card Reports no additional complaints Resp Reports no additional complaints GI Reports no additional complaints Reports no additional complaints Physical exam (Primary Care) Vital Signs: Last Vital Signs Temp 98.4 F 11/17/24 11:44 Pulse 81 11/17/24 11:44 Resp 18 11/17/24 11:44 BP 114/74 11/17/24 11:44 Pulse Ox 97 11/17/24 11:44 Oxygen Delivery Method Room Air 11/17/24 11:44 BMI result Body Mass Index 30.3 Tobacco/Smoking Status: Tobacco use Status Tobacco use date assessed 11/17/24 11/17/24 11:50 Patient Tobacco Use Status Never used Tobacco 11/17/24 11:50 e-Cigarette/Vaping Use Never Used 11/17/24 11:50 PHQ-9: PHQ-9 Score PHQ-9: Total score 0 11/17/24 11:50 Depression Screening Interpretation: Negative Thrive Assessment: Date of Thrive Assessment Date Thrive assessed 05/03/24 11/17/24 11:50 Currently or been in a relationship where the following occur: No concerns reported Const General: no acute distress HENMT Head: Yes normal to inspection Face and sinus: Yes normal facial exam Throat: Yes posterior oropharynx normal Neck Neck: Yes supple Resp Effort & Inspection: normal respiratory effort Auscultation: clear to auscultation bilaterally Cardio Rhythm: regular rhythm Heart sounds: S1 normal heart sound present and S2 normal heart sound present GI Inspection: Yes normal to inspection Palpation (GI): Soft to palpation Percussion: Yes normal to percussion General: Yes no CVA tenderness Back/Spine/Pelvis Back: no CVA tenderness Coding Level of Care Code Est Pt Level 3 (46903) Diagnoses Dysuria R30.0 Hyperlipidemia E78.5 Assessment & Plan Assessment & Plan (1) Dysuria: Code(s): R30.0 - Dysuria Category: Medical Plan: UA showed bacteria and leukocytes but urine culture were negative. Increasing fluid intake and UTI prevention discussed with the patient (2) Hyperlipidemia: Code(s): E78.5 - Hyperlipidemia, unspecified Category: Medical Plan: Low-cholesterol diet increase exercise weight loss taking fish oil supplement discussed with the patient. She declined taking medications. Patient will return for physical in April with a fasting labs before Orders: Orders UA w Microscopic Today R30.0 - Dysuria Comprehensive [place]. Panel Fast 5 Months E78.5 - Hyperlipidemia, unspecified, Z00.00 - Encounter for general adult medical examination without abnormal findings Lipid Panel 5 Months E78.5 - Hyperlipidemia, unspecified, Z00.00 - Encounter for general adult medical examination without abnormal findings UA w Microscopic 5 Months E78.5 - Hyperlipidemia, unspecified, Z00.00 - En counter for general adult medical examination without abnormal findings Complete Blood Count Auto Diff 5 Months E78.5 - Hyperlipidemia, unspecified, Z00.00 - Encounter for general adult medical examination without abnormal findings TSH reflex Free T4 5 Months E78.5 - Hyperlipidemia, unspecified, Z00.00 - Encounter for general adult medical examination without abnormal findings Vitamin D 25-OH Total 5 Months E78.5 - Hyperlipidemia, unspecified, Z00.00 - Encounter for general adult medical examination without abnormal findings
== END 2024-11-17 12:34 | disposition home or self-care (01) ==
LOC: HO.HMCC 11:43
PROVIDERS: PCP Internal Medicine; Visit Provider Internal Medicine
DX: R30.0 Dysuria (principal); E78.5 Hyperlipidemia, unspecified